=== PATIENT | female | born 2000 | race Caucasian/White ===

== ENCOUNTER 2024-07-16 22:53 | Emergency (ER) | payer OTHER ==
[~2024-07-16] VITALS: Ht 162.6 cm; Wt 52.3 kg
[2024-07-16 23:49] VITALS: BP 138/93; PULSE 75; TEMP 97.8
== END 2024-07-16 23:49 | disposition home or self-care (01) ==
LOC: COL.ER 22:53
DX: F41.9 Anxiety disorder, unspecified (principal)